=== PATIENT | female | born 1985 | race Caucasian/White ===

== ENCOUNTER 2016-07-10 17:41 | Emergency (ER) | payer OTHER ==
[2016-07-10 19:57] LABS: BASOPHIL 0.3 % (0-2); EOSINOPHIL 3.1 % (0-5); HCT 37.4 % (37.0-47.0); HGB 12.9 g/dl (12.5-16.0); LYMPHOCYTE 17.6 % (15-48); MCH 31.2 pg (25.0-31.0); MCHC 34.5 g/dL (32.0-36.0); MCV 90.3 fL (78.0-100.0); MONOCYTE 6.9 % (0-12); MPV 10.5 fL (6.0-9.5); NEUTROPHIL 72.1 % (41-80); PLT 268 K/uL (150-400); RBC 4.14 M/uL (4.20-5.40); RDW 14.6 % (11.5-14.0); WBC 16.3 K/uL (4.0-10.5)
[2016-07-10 20:22] LABS: ALBUMIN 4.5 g/dL (3.5-5.0); BILIRUBIN - TOTAL 0.2 mg/dL (0.1-1.0); CREATININE 0.6 mg/dL (0.5-1.0); GLOBULIN (CALCULATION) 2.8 g/dL (2.2-4.2); POTASSIUM 3.9 mmol/L (3.5-5.1); TOTAL PROTEIN 7.3 g/dL (6.4-8.3)
== END 2016-07-10 22:20 | disposition home or self-care (01) ==
LOC: FER 17:41
PROVIDERS: Internal Medicine
DX: O20.0 Threatened abortion (principal); O99.330 Smoking (tobacco) complicating pregnancy, unspecified trimester; F17.219 Nicotine dependence, cigarettes, with unspecified nicotine-induced disorders; Z3A.00 Weeks of gestation of pregnancy not specified
CPT/HCPCS: 36415; 80053; 84702; 85025; 86900; 86901; 99284